=== PATIENT | female | born 1995 | race Caucasian/White ===

== ENCOUNTER 2018-03-20 13:53 | Emergency (ER) | payer SELFPAY ==
[~2018-03-20] VITALS: Ht 162.6 cm; Wt 46.3 kg
[2018-03-20 14:10] VITALS: BP 109/66
[2018-03-20] MEDS ORDERED: ACETAMINOPHEN 500 MG TABLET PO ONE (14:30)
[2018-03-20] MEDS ORDERED: AZIT500T4 PO (15:06)
--- NOTE | 2018-03-20 15:07 | PHYS DOC ---
Past Medical History Past Medical History: No Pertinent History Past Surgical History: No Surgical History Additional Information: 0.5 PPD Alcohol Use: Occasionally Drug Use: None Adult General Chief Complaint Chief Complaint: SORE THROAT HPI HPI Patient is a 22 year old male who presents to the emergency Department today with complaints of a sore throat, fever of 100.5. And runny nose. She rates her pain as a 10 out of 10 on the pain scale. Denies any nausea, vomiting, diarrhea , nasal congestion, cough, shortness of breath, or rash. Patient states she is allergic to penicillin causes a rash. Review of Systems Review of Systems Constitutional: Denies chills reports fever and fatigue HENT: Denies nasal congestion, or ear pain; reports sore throat [] Respiratory: Denies cough or shortness of breath [] GI: Denies abdominal pain, nausea, vomiting,or diarrhea [] Neurologic: Denies headache, focal weakness or sensory changes [] All other systems were reviewed and found to be within normal limits, except as documented in this note. Current Medications Current Medications Current Medications Medications (Trade) Dose Ordered Sig/Fiordaliza Start Time Stop Time Status Last Admin Dose Admin Acetaminophen (Tylenol) 1,000 mg 1X ONCE 03/20/18 14:30 03/20/18 14:31 DC 03/20/18 14:42 1,000 MG Allergies Allergies Allergies Coded Allergies Type Severity Reaction Last Updated Verified cephalexin Allergy Intermediate Rash 03/20/18 Yes Physical Exam Physical Exam Constitutional: Well developed, well nourished, no acute distress, non-toxic appearance. [] HENT: Normocephalic, atraumatic, bilateral external ears normal, oropharynx moist, posterior pharynx erythemic, 2+ edema of bilateral tonsils with exudate noted, nose normal. [] Eyes: PERRLA, conjunctiva normal, no discharge. [] Neck: Normal range of motion, no stridor, mild left cervical lymphadenopathy with mild tenderness [] Cardiovascular:Heart rate regular rhythm, no murmur [] Lungs & Thorax: Bilateral breath sounds clear to auscultation [] Skin: Warm, dry, no erythema, no rash. [] Neurologic: Alert and oriented X 3, normal motor function, normal sensory function, no focal deficits noted. [] Psychologic: Affect normal, judgement normal, mood normal. [] Current Patient Data Vital Signs Vital Signs Date Time Temp Pulse Resp B/P (MAP) Pulse Ox O2 Delivery O2 Flow Rate FiO2 03/20/18 14:10 100.4 105 18 109/66 (80) 99 Room Air 100.4 Lab Values Rapid strep negative EKG EKG [] Radiology/Procedures Radiology/Procedures [] Course & Med Decision Making Course & Med Decision Making Pertinent Labs and Imaging studies reviewed. (See chart for details) Patient is a 22-year-old female who presents to the emergency room today with complaints of sore throat and a fever. She was febrile upon arrival to the ER, patient stated she took 1 g of Tylenol just prior to arrival. Patient was given 500 mg of naproxen while in the emergency department, rapid strep test was negative however based off the centor criteria patient meets criteria for treatment of strep pharyngitis. Prescription for Zithromax was written. Patient verbalized an understanding of home care, medications, follow-up, and return to ED instructions and was in agreement with the plan of care. [] Dragon Disclaimer Dragon Disclaimer This electronic medical record was generated, in whole or in part, using a voice recognition dictation system. Departure Departure Impression: Primary Impression: Acute bacterial pharyngitis Additional Impression: Fever Disposition: 01 HOME, SELF-CARE Condition: STABLE Referrals: NO PCP (PCP) Patient Instructions: Viral and Bacterial Pharyngitis, [id number] Additional Instructions: Fill the prescription and use as directed. He may take Tylenol or ibuprofen as needed for pain or fever. Recommend warm salt water gargles needed for relief. Follow-up with your primary care doctor in the next 1-2 days. Return to the ER if your symptoms worsen. Scripts Azithromycin (AZITHROMYCIN TABLET) 500 Mg Tablet 500 MG PO DAILY for ANTI-BIOTIC for 5 Days, #5 TAB 0 Refills Prov: MIRYAM TIMMONS APRN 03/20/18 Problem Qualifiers Additional Impression: Fever Fever type: unspecified Qualified Codes: R50.9 - Fever, unspecified MIRYAM TIMMONS ADVERTISING WRITER Mar 20, 2018 15:07
== END 2018-03-20 15:20 | disposition home or self-care (01) ==
LOC: ER 13:53
DX: J02.8 Acute pharyngitis due to other specified organisms (principal); B96.89 Other specified bacterial agents as the cause of diseases classified elsewhere; R59.0 Localized enlarged lymph nodes; F17.200 Nicotine dependence, unspecified, uncomplicated; Z88.1 Allergy status to other antibiotic agents
CPT/HCPCS: 87070; 87880; 99283

== ENCOUNTER 2020-12-15 09:05 | Emergency (ER) | payer SELFPAY ==
[~2020-12-15] VITALS: Ht 165.1 cm; Wt 50.0 kg
[~2020-12-15 09:05] MED LIST: AZIT500T4 PO
[2020-12-15 09:10] VITALS: BP 111/80
--- NOTE | 2020-12-15 10:04 | ED.ADGEN ---
Past Medical History Past Medical History: No Pertinent History Past Surgical History: No Surgical History Smoking Status: Current Every Day Smoker Alcohol Use: Heavy Additional Information: PT REPORTS 1/2 PINT DAILY Drug Use: None General Adult EDM: Chief Complaint: VAGINAL BLEEDING HPI: HPI: Patient is 25-year-old female presents to the emergency room concerned that she may have a miscarriage. She states that for the last 2 to 3 days she has had lower abdominal cramping with bleeding. She has passed some blood clots. She is not currently on control. Her last menstrual cycle was 4 to 5 weeks ago. She has never been previously. She has not had a positive test at home. Review of Systems: Review of Systems: Complete ROS is negative unless otherwise documented in HPI Allergies: Allergies: Allergies Coded Allergies Type Severity Reaction Last Updated Verified cephalexin Allergy Intermediate Rash 03/20/18 Yes Physical Exam: PE: General: Awake, alert, NAD. Well Nourished, well hydrated. Cooperative HEENT: Atraumatic, EOMI, PERRL, airway patent, moist oral mucosa Neck: Supple, trachea midline Respiratory: CTA bilaterally, normal effort, no wheezing/crackles CV: RRR, no murmur, cap refill <2 GI: Soft, nondistended, nontender, no masses MSK: No obvious deformities Skin: Warm, dry, intact Neuro: A&O x3, speech NL, sensory and motor grossly intact, no focal deficits Psych: Normal affect, normal mood, not suicidal or homicidal Current Patient Data: Labs: Laboratory Tests Test 12/15/20 09:22 12/15/20 09:31 Urine Collection Type Unknown Urine Color Yellow Urine Clarity Clear Urine pH 6.5 (<5.0-8.0) Urine Specific [place] 1.010 (1.000-1.030) Urine Protein Negative mg/dL (NEG-TRACE) Urine Glucose (UA) Negative mg/dL (NEG) Urine Ketones (Stick) 15 mg/dL (NEG) Urine Blood Large (NEG) Urine Nitrite Positive (NEG) Urine Bilirubin Negative (NEG) Urine Urobilinogen Dipstick 1.0 mg/dL (0.2 mg/dL) Urine Leukocyte Esterase Negative (NEG) Urine RBC 3-5 /HPF (0-2) Urine WBC 5-10 /HPF (0-4) Urine Squamous Epithelial Cells Mod /LPF Urine Bacteria Mod /HPF (0-FEW) POC Urine HCG, Qualitative Hcg negative (Negative) Vital Signs: Vital Signs Date Time Temp Pulse Resp B/P (MAP) Pulse Ox O2 Delivery O2 Flow Rate FiO2 12/15/20 09:10 97.9 110 16 111/80 (90) 98 Room Air 97.9 EKG: EKG: [] Heart Score: C/O Chest Pain: N/A Risk Factors: Risk Factors: DM, Current or recent (<one month) smoker, HTN, HLP, family history of CAD, obesity. Risk Scores: Score 0 - 3: 2.5% MACE over next 6 weeks - Discharge Home Score 4 - 6: 20.3% MACE over next 6 weeks - Admit for Clinical Observation Score 7 - 10: 72.7% MACE over next 6 weeks - Early Invasive Strategies Radiology/Procedures: Radiology/Procedures: [] Course & Med Decision Making: Course & Med Decision Making Pertinent Labs and Imaging studies reviewed. (See chart for details) Patient is a 25-year-old female presents to the emergency room concerned she may be having a miscarriage. Patient has not had a positive test at home. test at this time is negative. It is more likely that she is having some dysmenorrhea. I have discussed with her she should follow-up with an [employer]. We have discussed that if she goes through more than 1 pad every hour she should return to the emergency room. Patient's test results and vitals while in the ED were fully reviewed and discussed with the patient. Patient is stable and at this time does not need admission to the hospital. We have discussed strict return precautions and the importance of following up with their Primary Care Physician. Patient stated understanding and was given an opportunity to ask any questions. Patient is in agreement with plan. Dragon Disclaimer: Dragon Disclaimer: This electronic medical record was generated, in whole or in part, using a voice recognition dictation system. Departure Departure Impression: Primary Impression: Dysfunctional uterine bleeding Disposition: HOME / SELF CARE / HOMELESS Condition: STABLE Referrals: NO PCP (PCP) Patient Instructions: Dysmenorrhea PRAVIN MASCORRO MD December 15, 2020 10:04
[2020-12-15 10:08] LABS: BILIRUBIN,URINE NEGATIVE (NEG); CLARITY,URINE CLEAR; COLOR,URINE YELLOW; NITRITE,URINE POSITIVE (NEG); PH,URINE 6.5 (<5.0-8.0); PROTEIN,URINE NEGATIVE (NEG-TRACE)
[2020-12-15 11:00] LABS: BACTERIA,URINE MOD /HPF (0-FEW)
== END 2020-12-15 10:12 | disposition home or self-care (01) ==
LOC: ER 09:05
DX: N93.8 Other specified abnormal uterine and vaginal bleeding (principal); R10.30 Lower abdominal pain, unspecified; F17.200 Nicotine dependence, unspecified, uncomplicated; Z88.1 Allergy status to other antibiotic agents
CPT/HCPCS: 81001; 81025; 99283